=== PATIENT | female | born 1970 | race Caucasian/White ===

== ENCOUNTER 2018-04-15 07:41 | Day surgery (SDC) | payer BC ==
[2018-04-15] MEDS ORDERED: MIDAZOLAM 1 MG/ML 2 ML INJ ×2 (09:55)
[2018-04-15] MEDS ORDERED: FENTAnyl 50 MCG/ML VIAL (09:55)
== END 2018-04-15 11:33 | disposition home or self-care (01) ==
LOC: GIL 07:41
DX: K64.8 Other hemorrhoids (principal); K62.5 Hemorrhage of anus and rectum
CPT/HCPCS: 45378; 84703